=== PATIENT | female | born 1980 | race Caucasian/White ===

== ENCOUNTER 2019-02-08 13:45 | Outpatient (CLI) | payer OTHER, SELFPAY ==
[2019-02-08 14:05] VITALS: RESP 18; TEMP 36.8
[2019-02-08 14:50] VITALS: BMI 31.8
[2019-02-08 15:48] LABS: Glucose Urine UA Norm (Normal); Ketones Urine 1+ (Negative); Protein Urine Neg (Negative); Specific Gravity, Urine 1.015 (1.005-1.030); Urine Appearance SL Hazy (CLEAR); Urine Color Yellow (Yellow); pH Urine 5 (5-7)
[2019-02-08 15:49] LABS: Bilirubin Urine Neg (NEGATIVE); Blood Urine Neg (Negative); Leukocyte Esterase Urine Negative (Negative); Nitrate Urine Negative (Negative); Urobilinogen Urine Norm (Negative)
[2019-02-08 16:10] LABS: Mucus Urine TRACE
[2019-02-08 16:11] LABS: RBC Urine 0-4 /hpf (0-2)
[2019-02-08 16:14] LABS: Add Urine Culture? No; Bacteria Urine 1+
[2019-02-08 16:22] LABS: Amphetamines Screen Urine Negative (Negative); Barbiturates Screen Urine Negative (Negative); Benzodiazepines Screen Urine Negative (Negative); Cocaine Screen Urine Negative (Negative); PCP Screen Urine Negative (Negative); THC Screen Urine Negative (Negative)
[2019-02-08 17:40] VITALS: BP 145/80; PULSE 84
--- NOTE | 2019-03-07 13:37 | ANES.PREANES ---
Pre-Anesthetic Assessment Pre-Anesthetic Assessment: Height/Weight: Height 1.6 m Weight 81.647 kg Temp Pulse Resp BP 98.3 F 84 18 145/80 02/08/19 14:05 02/08/19 17:40 02/08/19 14:05 02/08/19 17:40 Preop Diagnosis: IUP Proposed Procedure: epidural Familial anesthetic complications: None Social: Social History: Tobacco Packs per day: 1-2 cigarettes per day Exam: Pre-Anes Outpt Exam: alert, oriented x 3, clear to auscultation bilaterally and regular rate & rhythm Airway: Cervical ROM: WNL MP: 2 Additional comments: missing Pulmonary: Pulmonary: None reported CV/HEM: CV/HEM: None reported : : None reported Hepatic: Hepatic: None reported GI: GI: None reported Metabolic: Metabolic: None reported Musc/skel: Musc/skel: None reported Neuropsych: Neuropsych: None reported Anesthetic Plan: ASA status: II Anesthesia: Regional (specify below) (epidural) Risk of > 500 ml blood loss (7ml/kg in children): Yes, adequate IV access and fluids planned PFS Anesthesia Female Reproductive History: : 4 Data Anesthesia Cardiac Studies: No Data to Display
== END 2019-02-08 16:30 | disposition home or self-care (01) ==
LOC: OPOB 14:04 → OBGYN 14:07 → OPOB 02-12 17:35
PROVIDERS: Family Provider Family Medicine; PCP Family Medicine; Visit Provider Obstetrics & Gynecology
DX: O26.899 Other specified pregnancy related conditions, unspecified trimester (principal); Z3A.00 Weeks of gestation of pregnancy not specified; R10.9 Unspecified abdominal pain
CPT/HCPCS: 80307; 81001; 99211

== ENCOUNTER → 2019-02-17 11:35 | Outpatient (BNVA) | payer OTHER, SELFPAY | PROVIDERS: Family Provider Family Medicine; PCP Family Medicine; Visit Provider Obstetrics & Gynecology | DX: O99.323 Drug use complicating pregnancy, third trimester (principal) | CPT/HCPCS: 80307; 84315; 87081 ==

== ENCOUNTER 2019-03-07 08:15 | Outpatient (CLI) | payer OTHER, SELFPAY | END 2019-03-07 08:16 | disposition home or self-care (01) | LOC: LAB 03-20 14:00 | PROVIDERS: Family Provider Family Medicine; PCP Family Medicine; Visit Provider Nurse Practitioner Women's Health | DX: Z34.93 Encounter for supervision of normal pregnancy, unspecified, third trimester (principal) | CPT/HCPCS: 76816; 80307; 84315 ==

== ENCOUNTER → 2019-03-10 09:55 | Outpatient (BNVA) | payer OTHER, SELFPAY | PROVIDERS: Family Provider Family Medicine; PCP Family Medicine; Visit Provider Obstetrics & Gynecology | DX: Z34.90 Encounter for supervision of normal pregnancy, unspecified, unspecified trimester (principal) | CPT/HCPCS: 81003; 84315 ==

== ENCOUNTER 2019-03-14 11:15 | Inpatient (IN) | payer OTHER, SELFPAY ==
[2019-03-14] VITALS (115 sets, daily range): BP systolic 0–150; BP diastolic 0–89; PULSE 53–201; RESP 16–17; TEMP 36.7–37.2; O2SAT 98–100; BMI 69.5
[2019-03-14 11:31] LABS: Basophils # 0.1 10^3/uL (0.0-0.1); Basophils % 0.3 %; Eosinophils # 0.2 10^3/uL (0.0-0.8); Eosinophils % 0.9 %; Hematocrit 34.6 % (37.0-47.0); Hemoglobin 11.2 g/dL (11.5-15.3); Lymphocytes # 3.5 10^3/uL (0.8-4.8); Lymphocytes % 20.1 %; Mean Corpuscular HGB Conc 32.4 g/dL (30.0-36.0); Mean Corpuscular Hemoglobin 28.6 pg (28.0-34.0); Mean Corpuscular Volume 88.3 fL (81-99); Mean Platelet Volume 9.9 fL (7.4-10.4); Monocytes % 5.9 %; Neutrophils # 12.7 10^3/uL (1.8-7.7); Neutrophils % 72.2 %; Nucleated Red Blood Cells % 0 %; Platelet Count 419 10^3/cmm (130-400); Red Blood Count 3.92 10^6/uL (4.1-5.3); Red Cell Distribution Width 13.6 % (12.1-15.1); White Blood Count 17.6 10^3/uL (4.0-10.0)
[2019-03-14 11:48] LABS: Amphetamines Screen Urine Negative (Negative); Barbiturates Screen Urine Negative (Negative); Benzodiazepines Screen Urine Negative (Negative); Cocaine Screen Urine Negative (Negative); Opiate Screen Urine Negative (Negative); PCP Screen Urine Negative (Negative); THC Screen Urine Negative (Negative)
--- NOTE | 2019-03-14 12:04 | PM.HP ---
Providers/Chief Complaint Admitting Physician: Arsen Avalos DO Primary Care Provider: Kike Woodard MD Chief Complaint: LEAKING FLUID History of Present Illness Mirna Mckeon is a 38 year old female currently at 40+ weeks gestation with EDC of 03/10/2019 based on LMP 06/03/2018 and consistent with a week ultrasound. She presents to labor delivery this morning with complaint of gross rupture of membranes 0950 hrs. Upon evaluation labor delivery she indeed had gross rupture of membranes cervix was described as 50% / 5 cm/vertex/-3 had reassuring/reactive tracing irregular contractions. At that time patient was admitted to labor and delivery for anticipated vaginal delivery. Option to ambulate at this time with monitoring per protocol possible need for misoprostol induction if no regular contractions. Patient has been seen at the [facility] throughout this denies any complications or issues. 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 Note that was delivered via vacuum extraction Other risk factors for this include advanced maternal age #2 history of macrosomia with shoulder dystocia #3 history of tobacco use #4 history of opioid use. Group B strep is negative Her blood type is a positive antibody screen negative Patient states that her most recent ultrasound performed last week but baby approximately 9 pounds Review of Systems Narrative: Constitutional signs and symptoms unremarkable no fevers no chills no headaches no visual changes no right upper quadrant or midepigastric pain she reports good movement is having irregular contractions with gush of free fluid 0950 hrs. Skin without rashes HEENT she denies visual changes scotomata. No headaches poor dentition is noted Respiratory systems unremarkable patient denies current smoking does indeed have a past history of smoking. Cardiovascular unremarkable no chest pain no palpitations GI unremarkable denies history of constipation chronic diarrhea no abdominal discomfort separate irregular contractions Genitourinary unremarkable positive gush of fluid this morning irregular contractions no bleeding no unusual discharge. Denies any known history of sexually transmitted infections Musculoskeletal unremarkable no swelling no edema full range of motion Neuropsych negative denies history of depression Medications/Allergies Allergies Allergy/AdvReac Type Severity Reaction Status Date / Time No Known Allergies Allergy Verified 02/08/19 15:55 Vitals/I&O/Wt Last Vital Signs Temp 98.4 F 03/14/19 10:20 Pulse 82 03/14/19 11:45 Resp 16 03/14/19 10:20 BP 118/80 03/14/19 11:45 Weight last 48 hrs Weight 178 g Physical Exam Narrative: EXAM NARRATIVE: Alert and oriented no acute distress white female appears older than chronologic age. Skin without rashes nontender HEENT grossly normal poor dentition Neck supple nontender no nodes or masses Lungs clear to auscultation Heart regular sinus rhythm Abdomen soft gravid nontender estimated weight 8-1/2 pounds baby is vertex by Rolan's good movement noted Genitourinary external genitalia is unremarkable cervix 70% effaced/4 to 5 cm/vertex/-3/5 membranes are ruptured Extremities grossly intact patella DTR 2/4 no edema Neurologic exam unremarkable gait normal Data : 03/14/19 11:00 A&P Assessment and plan (1) Term : 1.: Term IUP 2. Spontaneous rupture of membranes (PROM) 3. Osborn maternal age 4. History of opiate dependency 5. History of tobacco abuse 6. History of macrosomia with shoulder dystocia Plan: Patient definitely has rupture of membranes at 40+ weeks gestation cervix is favorable by my examination her cervix is 70% effaced 5 cm vertex -3 is having irregular contractions with reactive category 1 tracing. Patient will be admitted to labor and delivery will be allowed to ambulate if after 2 hours of ambulation not in active labor I did discuss with her the use of nasal Prostko sublingual to try to induce labor patient is comfortable with that. We also discussed that with prior history of shoulder dystocia and resultant Erb's palsy I would be very reluctant to perform an operative vaginal delivery and would expect her to fit normal labor curves and would anticipate vaginal delivery. My estimated weight for this baby is 8-1/2 to 9 pounds pelvis does appear to be adequate by clinical exam. We did discuss the possibility of proceeding directly with if she wished because of past history of macrosomia and shoulder dystocia with residual patient wishes to undergo attempt at labor understands cannot predict outcome understands cannot predict shoulder dystocia. At this time all questions have been answered plan to proceed as noted. Status: Acute Code(s): Z34.90 - Encounter for supervision of normal , unspecified, unspecified trimester (2) Spontaneous rupture of membranes: Status: Acute (3) Advanced maternal age (AMA) in : Status: Acute Attestations Medical Necessity Statement*: Patient is admitted for term anticipated length of stay 2 nights depending upon time of delivery Time Spent in Patient Care: Greater than 35 minutes 4 0 Coding Level of Care Code Acute Director Of Cardiology Service Line for Chg Fwd Diagnoses Term Z34.90 Spontaneous rupture of membranes Advanced maternal age (AMA) in
[2019-03-14] MEDS: lactated ringers 1,000 ML 999 ML IV ×3 (14:33→16:39)
[2019-03-14] MEDS: ePHEDrine 50 mg/mL Inj 10 MG IVP (17:16)
[2019-03-14] MEDS: oxytocin 30 UNIT/500 ML BAG IV (17:24)
[2019-03-14] MEDS: dextrose 5%-lactated ringers 1,000 ML 125 ML IV (18:05)
[2019-03-14] MEDS: lactated ringers 1,000 ML 125 ML IV (20:00)
--- NOTE | 2019-03-14 20:53 | P.PN_ITS ---
INSURANCE VERIFY REP Subjective Subjective: Interval history: Pt S?P SROM 0950 h. on Pitocin Augmentation 4 mU/minlast cervicla exam 70%/5 cm head -3/5 Mx of VAVD on 10+lb baby with shoulder dystocia and Erbs. Discussed with nursing staff to be prepared for shoulder dystocia. upon my exam pt now 70%/ 7 cm. vtx/-3/5 of note I can palpate the anterior fontanel just to the maternal left of the vaginal saggital axis. ? if the head is not yet flexed and still in the transverse presentation Labor: Station: -3 Amniotic Membrane Status: Ruptured Monitor Mode: External Contraction Pattern: Irregular Status: Category ll Vitals/I&O/Wt Last Vital Signs Temp 98.7 F 03/14/19 14:44 Pulse 75 03/14/19 20:44 Resp 17 03/14/19 14:44 BP 121/75 03/14/19 20:44 Pulse Ox 100 03/14/19 19:27 03/14/19 03/14/19 03/14/19 06:59 14:59 22:59 Intake Total 200 / 200 1725.300 / 1925.300 Output Total 200 / 200 Balance 200 / 200 1525.300 / 1725.300 Weight last 48 hrs Weight 80.739 kg Weight 178 g Weight 178 kg Physical Exam Narrative: EXAM NARRATIVE: cx 70/7/vtx/-3/5 soft, mid FHR 120 good reactivity, intermittant variables (mod) with recovery (CAT 2). Urinary Catheter Management^: Cleaning: Cath Placed During This Visit: yes Urethral Indwelling: Yes Reason for Continuing Indwelling Catheter: Other Urinary Catheter Date of Insertion: 03/14/19 Urinary Catheter Time of Insertion: 16:20 Data : 03/14/19 11:00 A&P Additional A&P Information pt just entering active phase. labor has been difficult to manage. Pi now off will allow 30 minutes then resart at 3 mU/min (1/2 of previous). continue to position change and labor. Attestations Medical Necessity Statement*: labor epidural Coding Level of Care Code Acute Flour Blender Helper for Diomedes Lopez
--- NOTE | 2019-03-14 22:43 | P.PCNOB_ITS ---
Delivery Note: Date of delivery: March 14, 2019 A&P Assessment and plan (1) Term : Status: Acute Code(s): Z34.90 - Encounter for supervision of normal , unspecified, unspecified trimester (2) Spontaneous rupture of membranes: Status: Acute (3) Advanced maternal age (AMA) in : Status: Acute Coding Level of Care Code Acute Commercial Driver'S License Driver for Chg Fwd Diagnoses Term Z34.90 Spontaneous rupture of membranes Advanced maternal age (AMA) in
--- NOTE | 2019-03-14 22:43 | PM.DELIVERY ---
 Delivery Note: Date of delivery: March 14, 2019 Pre-Delivery Course: cat 2 tracing, decrease of FHR to 80s for 5 minutes just prior to delivery Delivery: vacuum assisted vaginal delivery shoulder dystocia, mild 42-year-old multiparous female [place] now P3. At 40+4 weeks gestation. Patient was admitted to labor and delivery mid a.m. of 14 March 2019. She had spontaneous rupture membranes at home at 0950 hrs. Upon be admitted to labor and delivery had a reassuring category 1 tracing no perceivable uterine contractions noted. She was allowed to walk for approximately 2 hours per protocol at which time she received 25 mcg of Cytotec sublingual which induced onset a uterine contractions. This was then followed as needed by Pitocin augmentation, low dose. Throughout her initial labor her contractions were quite dysfunctional difficult to get the patient to go into labor the onset of Pitocin she was approximately 4 to 5 cm dilated and somewhat thickened at probably 60 to 50%. [place] to still be in latent phase. Occasional variable decelerations some with slow recovery were noted. Making the category at that time category 2 there was still excellent reactivity with accelerations between the intermittent variable. Patient did require labor epidural had a hypotensive episode with a mild decrease in heart rate at that point which recovered with fluids and ephedrine. She continued to slowly progress through latent phase. In the early evening of 14 March 2019 she was 5 to 6 cm and felt to be. Multiple position changes and adjustment of Pitocin were needed due to the category 2 tracing. Once reaching active phase she progressed rather nicely through the first stage of labor becoming complete and complete. At that time she was +3/5 station she was allowed to start pushing an issue pushed with good maternal effort rotated the baby from a ROP to OA presentation. As a baby rotated and descended there was a prolonged deceleration down to the 80s for approximately 5 minutes at that time maternal effort was waning and the mighty VAC vacuum extractor was utilized easily and fixed to the vertex in appropriate position and then with 1 pull and 1 maternal effort the head was delivered. There was a mild curdling patient's legs were already in Jessica position external restitution and did not result in delivery of the anterior shoulder was suprapubic pressure was applied to deliver the anterior shoulder at that time a night tight nuchal cord was encountered the nuchal cord was then easily reduced over the shoulder and the body of the delivered without difficulty. Infant was stunned cord was quickly clamped and cut and handed off to tendon near [facility] qualified nurses Apgars were 5 and 9. Pitocin was administered at the delivery of the anterior shoulder cord gases were obtained cord blood was obtained placenta was delivered spontaneously and complete three-vessel. Excellent urine contractility was encountered. At this point inspection of vagina and cervix showed no laceration there was one area of a vaginal band on the patient's right felt to be the result of her previous vaginal delivery and repair this band had torn during delivery the skin tag was removed and [id number] suture of 3-0 Vicryl used to reapproximate it thus resolving the band. At this point time the procedure was terminated there was no bleeding was under good control infant was doing well Cord bloods and gases have been obtained. Delivery was accomplished without complications. Estimated blood loss 350 cc. Disposition baby and mom in room bonding. Post-Delivery Status: good, baby and mother in room. A&P Assessment and plan (1) Term : term IUP delivered Status: Acute Code(s): Z34.90 - Encounter for supervision of normal , unspecified, unspecified trimester (2) Spontaneous rupture of membranes: po cytotec, followed by Pitocin augmentation. Status: Acute (3) Advanced maternal age (AMA) in : term delivery Status: Acute Coding Level of Care Code Acute Ems Director for Chg Fwd History Expanded Problem Focused Exam Expanded Problem Focused Medical Decision Making Moderate Complexity Diagnoses Term Z34.90 Spontaneous rupture of membranes Advanced maternal age (AMA) in Time Spent (min) 40 Comment 40 minutes were spent [id number] with patient and spouse in counseling and recommendations for care.
[2019-03-15] VITALS (12 sets, daily range): BP systolic 94–138; BP diastolic 56–83; PULSE 65–122; RESP 15–18; TEMP 36.5–37.9; O2SAT 96–99
[2019-03-15] MEDS: benzocaine-menthol 78 gm Canister 1 SPRAY TOPICAL (00:51)
[2019-03-15] MEDS: lanolin oint 7 gm 1 APPLIC TOPICAL (00:51)
[2019-03-15] MEDS: acetaminophen 325 mg Tablet 650 MG PO (03:38)
--- NOTE | 2019-03-15 10:07 | P.PN_ITS ---
RESIDENTIAL MORTGAGE UNDERWRITER Subjective Subjective: Interval history: day 1 Patient is on floor and day 1 doing well has no complaints she has been up and about is breast-feeding. Usual bleeding no fevers no chills denies any leg pain or discomfort. Baby is in room doing well. Labor: Station: +1 Amniotic Membrane Status: Leaking Monitor Mode: Internal (IUPC) Contraction Pattern: Irregular Uterine Tone Measurement: 15 Status: Category ll Post /CS: Patient comments OB post-: no complaints, pain well control led and flatus present baby status: doing well [place] feeding status: exclusively breast feeding Vitals/I&O/Wt Last Vital Signs Temp 97.7 F 03/15/19 06:15 Pulse 72 03/15/19 06:15 Resp 16 03/15/19 06:15 BP 94/58 03/15/19 06:15 Pulse Ox 99 03/15/19 06:15 03/14/19 03/15/19 03/15/19 22:59 06:59 14:59 Intake Total 3215.950 / 3415.950 1100 / 4515.950 1000 / 1000 Output Total 1100 / 1100 2200 / 3300 Balance 2115.950 / 2315.950 -1100 / 4653.208 8649 / 1000 Weight last 48 hrs Weight 80.739 kg Weight 178 g Weight 178 kg Physical Exam Narrative: EXAM NARRATIVE: Alert and oriented no acute distress sitting up in bed baby at bedside HEENT grossly normal Abdomen soft nontender uterus U- 1 firm nontender Extremities no edema no calf tenderness Urinary Catheter Management^: Cleaning: Cath Placed During This Visit: yes, but has since been removed by the nurse Urethral Indwelling: Yes Reason for Continuing Indwelling Catheter: Decision to DC Catheter Urinary Catheter Date of Insertion: 03/14/19 Urinary Catheter Time of Insertion: 16:20 Date Urinary Catheter Removed: 03/14/19 Time Urinary Catheter Discontinued: 22:03 Data : 03/14/19 11:00 A&P Additional A&P Information day #1 status post vacuum-assisted vaginal delivery Patient is doing well increase/continue care discharge home in a.m. day 2 Coding Level of Care Code Acute Software Asset Management Analyst for Diomedes Lopez
[2019-03-15] MEDS: prenatal vitamin Capsule 1 CAP PO (10:16)
[2019-03-15] MEDS: docusate sodium 100 mg Capsule PO ×2 (10:16→18:49)
[2019-03-15 11:33] LABS: Hematocrit 29.7 % (37.0-47.0); Hemoglobin 9.6 g/dL (11.5-15.3); Mean Corpuscular HGB Conc 32.3 g/dL (30.0-36.0); Mean Corpuscular Hemoglobin 27.7 pg (28.0-34.0); Mean Corpuscular Volume 85.6 fL (81-99); Platelet Count 350 10^3/cmm (130-400); Red Blood Count 3.47 10^6/uL (4.1-5.3); Red Cell Distribution Width 13.3 % (12.1-15.1); White Blood Count 20.9 10^3/uL (4.0-10.0)
[2019-03-16 06:55] VITALS: BP 125/77; PULSE 71; RESP 18; TEMP 36.6
--- NOTE | 2019-03-16 08:01 | PC.NURSE ---
upon entering room, pt very tearful. talked with pt, she states baby has not slept all night and she is just exhausted . discussed supplementing, and offered to take baby to [facility] for a couple hours to allow mom to eat and take a nap. pt agreed gratefully. assessment completed, lights dimmed and baby brought to [facility]
[2019-03-16] MEDS: prenatal vitamin Capsule 1 CAP PO (09:31)
[2019-03-16] MEDS: docusate sodium 100 mg Capsule PO (09:32)
[2019-03-16 10:40] VITALS: BP 115/68; PULSE 67; RESP 18; TEMP 36.7; O2SAT 96
--- NOTE | 2019-03-16 14:31 | P.DS_ITS ---
Discharge Providers TRAINING AND DEVELOPMENT DIRECTOR Date of Admission: 03/14/19 11:15 Date of Discharge: 03/16/19 Attending Provider at Admission: Arsen Avalos DO Attending Provider at Discharge: Arsen Avalos DO Primary Care Provider: Kike Woodard MD Diagnoses at Discharge Discharge Diagnosis (1) Term : Status: Acute Problem details: none (2) Spontaneous rupture of membranes: Status: Acute Problem details: none (3) Advanced maternal age (AMA) in : Status: Acute Problem details: none Reason for Visit Reason for Visit: Reason For Visit: LEAKING FLUID Hospital Course Hospital Course: Patient was admitted to labor and delivery in active labor. Progressed nicely through labor with category 1 tracing under epidural. In second stage did have prolonged bradycardia resulting in vacuum-assisted vaginal delivery of a viable infant. Apgars were 5 and 9. Cord gases obtained and were normal. baby and mother did well discharge home day 2. Discharge Summary: Discharge to self-care at home plan follow-up with me in 2 weeks we did discuss contraception patient believes that she would like to undergo IUD we will discuss this again in 2 weeks. Advised to take Tylenol and ibuprofen as needed for pain maintain stool softeners continue vitamins and FeSO4. Activity as tolerated vaginal rest for 6 weeks patient does have prescription for breast pump Information Peripartum Data: Infant Delivery Method: Vaginal Physical Exam Narrative: EXAM NARRATIVE: Alert and oriented no acute distress pleasant white female nursing baby. Abdomen is soft nontender uterus U- 2 firm nontender Extremities grossly intact no edema Perineum not inspected by me Urinary Catheter Management^: Cleaning: Cath Placed During This Visit: yes, but has since been removed by the nurse Urethral Indwelling: Yes Reason for Continuing Indwelling Catheter: Decision to DC Catheter Urinary Catheter Date of Insertion: 03/14/19 Urinary Catheter Time of Insertion: 16:20 Date Urinary Catheter Removed: 03/14/19 Time Urinary Catheter Discontinued: 22:03 Discharge Data Vitals: Last Vital Signs Temp 97.8 F 03/16/19 06:55 Pulse 71 03/16/19 06:55 Resp 18 03/16/19 06:55 BP 125/77 03/16/19 06:55 Pulse Ox 99 03/15/19 06:15 Discharge Plan Discharge Patient Disposition: Home, Self-Care Condition: Stable Prescriptions: New acetaminophen 325 mg Tablet 650 mg PO Q6H PRN (Reason: Mild pain or temp > 100.4) 30 Days Qty: 60 RF: 0 ibuprofen 800 mg Tablet 800 mg PO TID 30 Days Qty: 90 RF: 0 [id number] 1 tab PO DAILY 60 Days Qty: 60 RF: 2 Continued 28-800 mg-mcg Tablet 1 tab PO DAILY RF: 0 Discharge Orders: Discharge Order (Routine); Ordered 03/16/19 Ordered By: Arsen Avalos Discharge Diet: Usual diet Discharge Activity: Increase activity as tolerated Activity Restrictions/Additional Instructions: Activity as tolerated. Vaginal rest for 6 weeks follow-up to in 6 weeks Discharge Attestations TRAINING AND DEVELOPMENT DIRECTOR Time Spent in Discharge Care*: less than 30 min Coding Level of Care Code Acute Anesthesiologist Assistant for Chg Fwd Diagnoses Term Z34.90 Spontaneous rupture of membranes Advanced maternal age (AMA) in
== END 2019-03-16 16:12 | disposition home or self-care (01) | DRG 807 ==
LOC: OBGYN 03-16 14:35 → OPOB 03-17 08:28
PROVIDERS: Admitting Provider Obstetrics & Gynecology Female Pelvic Medicine and Reconstructive Surgery; Family Provider Family Medicine; PCP Family Medicine; Visit Provider Obstetrics & Gynecology Female Pelvic Medicine and Reconstructive Surgery
DX: O99.89 Other specified diseases and conditions complicating pregnancy, childbirth and the puerperium (principal); Z37.0 Single live birth; R00.1 Bradycardia, unspecified; Z3A.40 40 weeks gestation of pregnancy; O62.2 Other uterine inertia; O76 Abnormality in fetal heart rate and rhythm complicating labor and delivery; O69.81X0 Labor and delivery complicated by cord around neck, without compression, not applicable or unspecified
CPT/HCPCS: 12345; 36415; 51702; 59025; 59409; 80307; 83986; 85025; 85027; 96375; J2795